=== PATIENT | female | born 1995 | race Two or more races ===

== ENCOUNTER 2018-01-13 22:03 | Emergency (ER) | payer OTHER ==
[2018-01-13] MEDS ORDERED: EPINEPHRINE INJ/PF 1 MG/1 ML AMPULE ONE (22:38)
[2018-01-13] MEDS ORDERED: DIPHENHYDRAMINE HCL 50 MG/ML VIAL IV ONE (22:40)
[2018-01-13] MEDS ORDERED: EPINEPHRINE INJ/PF 1 MG/1 ML AMPULE IM ONE (22:40)
[2018-01-13] MEDS ORDERED: METHYLPREDNISOLONE INJ 125 MG/2 ML SDV IV ONE (22:41)
--- NOTE | 2018-01-13 22:44 | ER Document Report ---
ED General - General Chief Complaint: Allergic Reaction Stated Complaint: POSSIBLE ALLERGIC REACTION Time Seen by Provider: 01/13/18 22:40 Notes: Patient is a 23-year-old female who presents with complaint of allergic reaction. Patient says she has previous history of just mild itchiness whenever she eats jalapenos. Today she was using a saucer dip that had jalapenos and at approximate 10 minutes after eating it she developed itchiness and scratchiness in her throat as well as some difficulty breathing. She took loratadine at home. She notes that she started to develop some noisy breathing and wheezing whenever she took a deep breath whenever she came to the ER. She denies any fevers. No vomiting. She denies ever having allergic reaction to severe except for shellfish. She has no other complaints at this time. TRAVEL OUTSIDE OF THE [place] IN LAST 30 DAYS: No - Related Data Allergies/Adverse Reactions: iodine Allergy (Verified 01/13/18 22:07) shellfish derived Allergy (Verified 01/13/18 22:07) Past Medical History - Social History Smoking Status: Never Smoker Frequency of alcohol use: Rare Drug Abuse: None Family History: Reviewed & Not Pertinent Review of Systems - Review of Systems Notes: My Normal Review Basic REVIEW OF SYSTEMS: CONSTITUTIONAL : Denies fever, chills, or sweats. Denies recent illness. EENT: Denies eye, ear, throat, or mouth pain or symptoms. Denies nasal or sinus congestion. CARDIOVASCULAR: Denies chest pain. RESPIRATORY: Some shortness of breath. GASTROINTESTINAL: Denies abdominal pain. Denies nausea, vomiting, or diarrhea. Denies constipation. Last BM: MUSCULOSKELETAL: Denies neck or back pain or joint pain or swelling. SKIN: Denies rash or skin lesions. NEUROLOGICAL: Denies altered mental status or loss of consciousness. Denies headache. Denies weakness or paralysis or loss of use of either side. Denies problems with gait or speech. Denies sensory or motor loss. ALL OTHER SYSTEMS REVIEWED AND NEGATIVE. Physical Exam - Vital signs Vitals: Temp Pulse Resp BP Pulse Ox 98.9 F 94 16 142/94 H 100 01/13/18 22:08 01/13/18 22:08 01/13/18 22:08 01/13/18 22:08 01/13/18 22:08 - Notes Notes: General Appearance: Well nourished, alert, cooperative, no acute distress, no obvious discomfort. Patient is not in significant distress however she will sometimes prolong her respiratory face and does have a small amount of stridor when she does take a deep breath. Vitals: reviewed, See vital signs table. Head: no swelling or tenderness to the head Eyes: PERRL, EOMI, Conjuctiva clear Mouth: No decreasd moisture, no glossal or pharyngeal swelling. Throat: No tonsillar inflammation, No airway obstruction, No lymphadenopathy Neck: Supple, no neck swelling but the patient does have a few areas of hives along her anterior neck. Lungs: No wheezing, No rales, No rhonci, No accessory muscle use, good air exchange bilaterally. Heart: Normal rate, Regular rythm, No murmur, no rub Abdomen: Normal BS, soft, No rigidity, No abdominal tenderness, No guarding, no rebound, no abdominal masses, no organomegaly Extremities: strength 5/5 in all extremities, good pulses in all extremities, no swelling or tenderness in the extremities, no edema. Skin: warm, dry, appropriate color, no rash Neuro: speech clear, oriented x 3, normal affect, responds appropriately to questions. Course - Re-evaluation Re-evalutation: 01/13/18 22:41 Patient has some mild inspiratory stridor feels as if her throat is tight. Whenever she does take a deep breath is to take along deep breath in. Because this have given her a dose of IM epinephrine. She will give 0.3 mg IM. Patient also given 50 mg of Benadryl IV as well as 125 mg of Solu-Medrol IV. Patient will be closely monitored. 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 01/13/18 23:19 On reevaluation patient is feeling much improved. All stridor is gone. We will continue to monitor her for the next 1-2 hours to make sure that her symptoms stay resolved. 01/14/18 01:06 Patient continues to not have any stridor or difficulty breathing however she is having recurrent coughing. Informed her I prefer to watch her till 6 AM to make sure that she does not have any recurrence of stridor or difficulty breathing. After 6 AM I be able to give her a prescription for an EpiPen and the pharmacies would be open shortly after that for her to get it filled in case she does need it. My concern is that being that she went home [place] started having difficulty breathing that she would not have a EpiPen to use. She does have an EpiPen at home but says that way long and she is unsure if it has any good. Patient agrees with plan and agrees to stay until 6am for me to monitor her. Dictation of this chart was performed using voice recognition software; therefore, there may be some unintended grammatical errors. 01/14/18 06:16 Patient did well throughout the night. She does not have any recurrent coughing and no stridor. She looks well. This time I discharge her home with a prescription for tapering dose steroids as well as an EpiPen. Informed her she must return to ER immediately if she has recurrent difficulty breathing or feels unwell or has used her EpiPen. Patient agrees with plan will be discharged home. Dictation of this chart was performed using voice recognition software; therefore, there may be some unintended grammatical errors. - Vital Signs Vital signs: Temp Pulse Resp BP Pulse Ox 98.1 F 94 20 125/77 97 01/14/18 06:12 01/13/18 22:08 01/14/18 06:07 01/14/18 06:07 01/14/18 06:07 Discharge - Discharge Clinical Impression: Allergic reaction Qualifiers: Encounter type: initial encounter Qualified Code(s): T78.40XA - Allergy, unspecified, initial encounter Condition: Good Disposition: HOME, SELF-CARE Additional Instructions: ACUTE ALLERGIC REACTION: Your symptoms are due to an allergic reaction. Allergy can cause hives, swelling of the hands, feet, and face, hoarseness, and difficulty swallowing or breathing. It may be due to exposure to medication, animal dander, foods, infection, or insect bites. Medication is a common cause, even when prior use of this same medication caused no problems. Acute treatment may include adrenalin and antihistamines. Usually, the specific allergic agent can't be identified unless repeated episodes occur. Home treatment includes the following: (1) Stop any suspicious medications. This will be discussed with you. (2) Oral antihistamines for the next four to five days. Example, diphenhydramine (Benadryl) every four hours. (3) You may also use cimetidine (Tagamet), ranitidine (Zantac), or famotidine ( Pepcid) every four hours if diphenhydramine is not controlling itching and hives. (4) Avoid aspirin until the hives completely disappear. (5) Avoid hot baths or showers until the hives are completely gone. Call the doctor if faintness, difficulty swallowing, tightness in the chest , or wheezing occurs. EPINEPHRINE: An injection of epinephrine (also called adrenalin) is used to treat allergic reactions, asthma, and some other medical conditions. It is a stimulant medication that consticts blood vessels, relaxes smooth muscles such as in the bronchioles of the lung, elevates blood pressure, and increases heart rate. It can temporarily make you feel very nervous and shakey, but it's affects last only a short time, about 15 to 30 minutes at most. STEROID MEDICATION INJECTION: You have been given an injection of medicine of the cortisone/steroid class. This medication is used to control inflammation or allergy. It is often continued as a pill for a short period of time, until the acute process subsides. There are usually no side effects from short-term use of cortisone-like medications. Some persons feel an increased sense of well-being and are not sleepy at bedtime. Long-term use of cortisone medications is best avoided, unless required for a severe condition. If your condition does not remit, or relapses after the course of corticosteroid medication, you should consult your physician. ANTIHISTAMINES: An antihistamine has been given and/or prescribed to control your symptoms. Antihistamines are used for many reasons, including itching, watering eyes, runny nose, allergic swelling, hives, and insect stings. Antihistamines may cause drowsiness, especially with the first dose. Do not operate machinery or drive while under the effects of the medication. Other common side effects include dry mouth and eyes. In older persons, antihistamines can occasionally cause urinary retention, constipation, and trouble focusing the eyes. Do not combine the medication with alcohol, or with any other medication without talking to your doctor. FOLLOW-UP CARE: If you have been referred to a physician for follow-up care, call the physician s office for an appointment as you were instructed or within the next two days. If you experience worsening or a significant change in your symptoms, notify the physician immediately or return to the Emergency Department at any time for re-evaluation. Please avoid any foods that have jalapenos in them. Please take the prednisone as prescribed. please take benadryl as needed for any itching. Please return to the ER immediately if you have to use the Epipen, have facial swelling, tongue swelling, throat swelling, difficulty breathing, or feel that your reaction is becoming severe. Please use the Epipen if you have any facial swelling, tongue swelling, or difficulty breathing. Prescriptions: Epinephrine [Epipen 2-Edenilson] 0.3 mg IM ASDIR PRN #1 packet PRN Reason: Prednisone 10 mg PO ASDIR #42 tablet
[2018-01-14 06:12] VITALS: BP 125/77
== END 2018-01-14 06:18 | disposition home or self-care (01) ==
LOC: ER 22:03
DX: T78.40XA Allergy, unspecified, initial encounter (principal); R06.02 Shortness of breath; R06.1 Stridor; R09.89 Other specified symptoms and signs involving the circulatory and respiratory systems; X58.XXXA Exposure to other specified factors, initial encounter; Z91.013 Allergy to seafood
CPT/HCPCS: 99283; 96372; 96374; 96375; J1200; J0171; J2930